=== PATIENT | male | born 1960 | race Caucasian/White ===

== ENCOUNTER 2016-10-23 06:38 | Inpatient (IN) | payer MEDICARE, MEDICAID ==
[2016-08-30 23:09] VITALS: BMI 32.8
[2016-10-23] MEDS ORDERED: REMIFENTANIL HCL 2,000 MCG VIAL IV ONE (06:58)
[2016-10-23] MEDS ORDERED: CEFAZOLIN 1 GM VIAL ONE (07:13)
[2016-10-23] MEDS: VANCOMYCIN 1,000 MG VIAL INSTILL ONE ×2 (07:23→09:01)
[2016-10-23] MEDS ORDERED: BUPIVACAINE 0.5% 30 ML VIAL ONE (07:42)
[2016-10-23] MEDS ORDERED: LIDOCAINE 1% 30 ML VIAL (PRESERVATIVE FREE) ONE (07:42)
[2016-10-23] MEDS ORDERED: TRIAMCINOLONE 40 MG/ML VIAL ONE (07:44)
[2016-10-23] MEDS ORDERED: ONDANSETRON HCL 4 MG/2 ML VIAL IV PRN (07:56)
[2016-10-23] MEDS ORDERED: HYDROmorphone 1 MG INJECTION IV PRN ×3 (07:56→11:18)
[2016-10-23] MEDS ORDERED: FENTANYL 100 MCG/2 ML VIAL IV PRN (07:56)
[2016-10-23] MEDS ORDERED: ONDANSETRON HCL 4 MG ODT TAB PO PRN (07:56)
[2016-10-23] MEDS ORDERED: LABETALOL 20 MG/4 ML SYRINGE IV PRN (07:56)
[2016-10-23] MEDS ORDERED: MEPERIDINE 25 MG/ML TUBEX IV PRN (07:56)
[2016-10-23] MEDS ORDERED: hydrALAZINE 20 MG/ML VIAL IV PRN (07:56)
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
[2016-10-23] MEDS ORDERED: GLYCOPYRROLATE 1 MG VIAL IM ONE (10:45)
[2016-10-23] MEDS ORDERED: SUCCINYLCHOLINE 20 MG/1 ML INJ 10 ML MDV IV ONE (10:45)
[2016-10-23] MEDS ORDERED: DEXAMETHASONE 4 MG/ML VIAL IV ONE (10:45)
[2016-10-23] MEDS ORDERED: FENTANYL 100 MCG/2 ML VIAL IV ONE (10:45)
[2016-10-23] MEDS ORDERED: PROPOFOL 200 MG/20 ML VIAL IV ONE (10:45)
[2016-10-23] MEDS ORDERED: NEOSTIGMINE 1 MG/1 ML (1:1000) INJ 10 ML MDV IM ONE (10:45)
[2016-10-23] MEDS ORDERED: ONDANSETRON HCL 4 MG/2 ML VIAL IV ONE (10:45)
[2016-10-23] MEDS ORDERED: LIDOCAINE 2% 10 ML (PRESERVATIVE FREE) VIAL INF ONE (10:45)
[2016-10-23] MEDS ORDERED: MIDAZOLAM 2 MG/2 ML VIAL IV ONE (10:45)
[2016-10-23] MEDS ORDERED: ROCURONIUM 50 MG/5 ML VIAL IV ONE (10:45)
[2016-10-23] MEDS ORDERED: DIPHENHYDRAMINE 50 MG/ML VIAL IV PRN (11:18)
[2016-10-23] MEDS ORDERED: Aluminum;Magnesium;Simethicone 30 ML UDC PO PRN (11:18)
[2016-10-23] MEDS ORDERED: SODIUM CHLORIDE 0.9% 3 ML FLUSH FLUSH PRN (11:18)
[2016-10-23] MEDS ORDERED: MAGNESIUM HYDROXIDE 30 ML BOTTLE PO PRN (11:18)
[2016-10-23] MEDS ORDERED: DIPHENHYDRAMINE 25 MG CAP PO PRN (11:18)
--- NOTE | 2016-10-23 11:19 | HIMOPRPT ---
POSTERIOR LUMBAR FUSION DATE OF PROCEDURE: 10/23/16 PREOPERATIVE DIAGNOSIS: -.Lumbar Degenerative disc disease L4-5. - Lumbar spinal stenosis L4-5 - Lumbar spondylolisthesis L4-5 - Lower extremity radiculopathy left - POSTOPERATIVE DIAGNOSIS: - Lumbar degenerative disc disease L4-5. - Lumbar spinal stenosis L4-5 - Lumbar spondylolisthesis L4-5 - Lower extremity radiculopathy left PROCEDURE PERFORMED: - Lumbar laminectomy with facetectomy and foraminotomy for decompression of the cauda equina and nerve root L4-5 . - Posterior lumbar interbody arthrodesis L4-5 . - Posterior spinal instrumentation L4-5 . - Application of posterior interbody mechanical devices for spinal arthrodesis L4-5 SURGEON: Phillip Barger MD. MANAGER HVAC: GLADYS Olson] ANESTHESIA: General endotracheal Anesthesia. IV FLUIDS: Crystalloids ANTIBIOTICS: 2 g given immediately preoperatively and re dosed accordingly thereafter ESTIMATED BLOOD LOSS: 100 ml. SPECIMENS: None. COMPLICATIONS: None. IMPLANTS: - Medtronic Solera pedicle screw system 6.5 x 55 - Interbody cage device size 12. BRIEF HISTORY: Patient is a 56 years old male with complaints of low back pain and left lower extremity radicular pain. He underwent L5-S1 laminectomy at almost 20 years ago. He had evidence of L4-5 spondylolisthesis with spinal stenosis. The patient over last several months has tried a variety of nonsurgical modalities, none of which has provided him with any significant or lasting relief of her symptoms. For this condition I recommended surgical decompression including today is listed procedure. I had a lengthy And detailed conversation With the patient and the family. Wediscussed the risks and benefits of both nonsurgical and surgical treatment for this condition. From a surgical standpoint, and the risks include but are not limited to bleeding, infection, dural tear, cerebrospinal fluid leak and fistula, nerve injury, persistent and worsening neurological symptoms in the lower extremities, persistent bladder and bowel dysfunction, spinal instability, progressive degenerative changes, recurrent stenosis, epidural hematoma, epidural scarring, the need for further surgery and even . All the questions were on surgery. The patient expressed understanding and still wished to proceed. She volunteered an informed consent for the surgery. DESCRIPTION OF THE PROCEDURE: The patient was seen and identified in the preop holding area. The surgical region was confirmed with the patient and initialed on the skin by the surgeon. The patient was brought back to the operating room. While lying supine in her hospital bed, she underwent induction of general endotracheal anesthesia without complications. A team "time out" was performed confirming the identity of the patient and the planned procedure. A Rivera catheter and sequential compression devices on the lower extremities were then placed. These were continued for the duration of the procedure. Baseline potentials were obtained. She was transferred to the OSI flat table in a prone position on Taye frame. All the bony prominences were adequately padded and the face and eyes were protected with a custom face pillow . The entire back and pelvic area was cleansed thoroughly with alcohol followed by Betadine. The surgical region was sealed off with plastic drapes. A C-arm was brought in for level localization. The surgical levels were identified and marked on the skin with the pen. 2 g of IV Ancef were given preoperatively within 30 min. of the surgical incision. We utilized the standard midline posterior approach to the lumbar spine. Incision was made in the skin. Bovie cautery was used for hemostasis and dissection down through the subcutaneous tissue And along the posterior elements of the lumbar spine. Exposure was continued out to the level of the facets, the facet capsules were initially preserved. A C-arm was then brought in to identify and confirm the surgical levels. At this moment to be proceeded with more complete exposure removing facet joint capsules at L4 and L5 . Exposure was continued out along the dorsal aspect of the transverse processes L4-L5 . Self-retaining retractors were placed. Next, we proceeded with posterior decompression with laminectomy for decompression of the cauda equina and nerve root. At L4-5 left side a laminectomy with removal of abnormal facets was performed. All of this laminectomy was done separately from the exposure required for a and interbody fusion due to the severe stenosis and necessity for full decompression of the spinal canal. All of the laminectomy were done in a piecemeal fashion using a combination of rongeur, curettes and high-speed bur. No dural tears were encountered at any time during than.procedure. We were able to get sufficient decompression along the length of the canal from L4-L5 . The facets Joints capsules at the level above L3-4 were preserved. Bipolar cautery and FloSeal were used for hemostasis. A ball-tipped sound was used to assess adequate decompression which was felt to be satisfactory. We then proceeded with posterior lumbar interbody arthrodesis at L4-5 . This was done from the left sided approach. Total cystectomy was done to allow for adequate exposure of the disc space. With the traversing and exiting nerve roots protected, an annulotomy was performed with a scalpel. A discectomy was then performed in a piecemeal fashion using a combination of rongeur and curettes. The disc space was irrigated on multiple occasions. We then sized for and used a size 12 tall interbody cage. This cage had a very tight fit in the interbody space and the cage was packed with locally harvested autograft additional autografts were also placed around the cage in the interbody space. Final positioning of the cage was checked with orthogonal views on C-arm and felt to be satisfactory. No abnormal changes on the neurophysiologic monitoring were encountered at any time during this portion of the procedure. Next we proceeded with application of posterior segmental instrumentation at L4- 5 . Pedicle screw starting points were identified With anatomic landmarks and with images on C-arm. The starting points were decorticated with rongeur and high-speed bur. Pedicle finder awls Were utilized To develop a channel through the pedicle at each of the levels on each side in similar fashion. Trajectory was checked periodically on C-arm. The channels were checked with the ball-tip sound, tapped and then filled with pedicle screws. 6.5 x 55 Size screws were used at all the levels. No abnormal changes or neural physiologic monitoring were noted at any time during placement of the pedicle screws were. At this point each of the pedicle screws was then stimulated for an neurophysiologic monitoring. All screws were within acceptable limits. We used a arjun to connect the pedicle screws. Orthogonal views were then out pain on C-arm and and overall alignment and fixation was felt to be satisfactory. We then proceeded for wound closure. The central canal was checked for a final time and any residual bone graft removed. Hemovac drain was then placed in the subfascial space. The deep fascia was reapproximated with #1 Vicryl sutures. Subcutaneous tissue was approximated with Vicryl sutures and nylon sutures were used for the skin. Steroid dressings were applied. Patient was rolled back onto the hospital bed. She was awakened and extubated without complication. Upon awakening, she was able to demonstrate gross motor function in upper and lower extremities. No sustained abnormal signal change were noted on neuro physiologic monitoring. Sponge, needle and instrument counts were correct x2 at the end of the procedure. [employer] Supervisor's of the implant company were present throughout the case to enhance patient safety. DISPOSITION: The patient would be admitted to the Orthopedic Service. Would be starting physical therapy this afternoon.
[2016-10-23] MEDS ORDERED: Pharmacy Discontinue All Previous Acetaminophen Orders SCH (12:00)
[2016-10-23] MEDS ORDERED: NALOXONE 0.4 MG/ML AMPULE IV SCH (12:00)
[2016-10-23] MEDS ORDERED: FENTANYL 100 MCG/2 ML VIAL ONE ×2 (12:09→12:32)
[2016-10-23] MEDS: FENTANYL 100 MCG/2 ML VIAL IV PRN ×3 (12:13→12:48)
[2016-10-23] MEDS ORDERED: NS 250 ML IV ONE (13:27)
[2016-10-23] MEDS: OXYCODONE HCL 5 MG TABLET PO PRN ×2 (14:46→22:19)
[2016-10-23] MEDS: Cefazolin 2gm/50 ml D5W 2 GM/50 ML RTU IV SCH ×2 (14:47→20:02)
[2016-10-23] MEDS: ACETAMINOPHEN 325 MG/TAB TABLET PO SCH ×3 (14:49→23:10)
[2016-10-23] MEDS: ONDANSETRON HCL 4 MG/2 ML VIAL IV SCH ×3 (14:53→23:10)
[2016-10-23] MEDS ORDERED: Vaccine Screening Complete SCH (15:00)
[2016-10-23] MEDS: CALCIUM CARBONATE + VITAMIN D 500 MG TAB PO SCH ×2 (16:01→18:25)
[2016-10-23] MEDS: VITAMINS, MULTIPLE CAP PO SCH (16:01)
--- NOTE | 2016-10-23 17:21 | SC.ANESPOS ---
Post-Anesthesia Note PACU Discharge Time: 13:15 - Vital Signs Blood Pressure: 130/71 Pulse: 109 Resp Rate: 18 O2 Sat: 93 Temp: 97.8 F - Comments Anesthesia Discharge Time Report Time 13:15
[2016-10-23] MEDS: PANTOPRAZOLE 40 MG TAB PO SCH (18:25)
[2016-10-23] MEDS: OXYCODONE (OxyCONTIN) 10 MG TAB PO PRN (18:26)
[2016-10-23] MEDS: HYDROmorphone 1 MG INJECTION IV PRN ×2 (18:26→23:11)
[2016-10-23] MEDS: SODIUM CHLORIDE 0.9% 3 ML FLUSH FLUSH SCH (19:22)
[2016-10-23] MEDS: DOCUSATE-SENNA CONCENTRATE TAB PO SCH (20:02)
--- NOTE | 2016-10-23 20:03 | PCM.DCS92 ---
- Final/Secondary Discharge Diagnosis (1) Radicular pain of both lower extremities Acute M54.10 - RADICULOPATHY, SITE UNSPECIFIED (2) Lumbar degenerative disc disease Acute M51.36 - OTHER INTERVERTEBRAL DISC DEGENERATION, LUMBAR REGION Discharge Disposition: Home Cognitive Discharge Status: Unimpaired Fuctional Discharge Status: Walker Assistance, Post-op Weakness Diet at Discharge: As Tolerated, Regular Call Office For: Worsening Symptoms, Wound is Draining Pus, Fever over 101 F, Fever over 100.5, Wound is Painful, Wound is Red, Weight Gain (see below), Pain Uncontrolled By Meds, Other (See Details) Discontinue use of:: Alcohol, All Illegal Substances, All Types of Tobacco - DC Summary Notes Hospital Course Note:: Discharge summary on patient named ROSALIA SAEED admitted to [facility] on 10/23/16 by Phillip Barger MD. Date of discharge is []. Afebrile. Hospital course and surgery uneventful. Continue pain management. No NSAIDs for 3 months post-op. No aspirin for 72 hours post-op. Do not remove dressing. OK to shower with dressing in place. Call office with any dressing concerns. Avoid felxion and rotation of the spine. No lifting greater than 5 pounds. Stable for discharge home. To follow-up in office in 2 weeks or earlier as needed. <Franco Recinos - Last Filed: 10/23/16 20:01> - Final/Secondary Discharge Diagnosis (1) Lumbar degenerative disc disease Acute M51.36 - OTHER INTERVERTEBRAL DISC DEGENERATION, LUMBAR REGION Present on Admission: Yes Discharge Home Medication List Diazepam 10 mg PO TID 08/23/16 [History Confirmed 10/23/16 Last Taken 10/22/16 20:00] Acetaminophen [Acetaminophen Extra Strength] 500 - 1,000 mg PO Q6-8H PRN [History Confirmed 10/23/16 Last Taken 10/22/16 06:00] Folic Acid/Multivit-Minerals [Men's Multivitamin Gummies] 200 mcg PO DAILY 09/19 [History Confirmed 10/23/16 Last Taken 10/21/16] Oxycodone HCl/Acetaminophen [Percocet 5-325 mg Tablet] 1 - 2 tab PO Q4H PRN 06/27 [History Confirmed 09/19/16 Last Taken 10/23/16 06:00] Docusate-Senna Concentrate [Senokot S or Jessica Colace] 2 each PO QHS #60 tab 09/27 [Rx Last Taken Unknown] Ergocalciferol (Vitamin D2) [Vitamin D2 (ergocalciferol)] 50,000 units PO We@ 0900 10/23/16 [History Confirmed 10/23/16 Last Taken 10/15/16] Oxycodone Immediate Release [Oxycodone Immediate Release (OxyIR)] 5 mg PO Q4H PRN #40 tab 10/23/16 [Rx Last Taken Unknown] Tramadol HCl [Ultram] 100 mg PO DAILY 10/23/16 [History Confirmed 10/23/16 Last Taken 10/23/16 06:00] - DC Summary Notes Hospital Course Note:: Discharge summary on patient named ROSALIA SAEED admitted to [facility] on 10/23/16 by Phillip Barger MD. Date of discharge is [10/26/2016] . <Bradley Werner - Last Filed: 10/26/16 08:01> Discharge Condition: Stable Physician Follow up/Referrals: Phillip Barger MD [Staff Physician] - Two Weeks New Prescriptions: Docusate-Senna Concentrate [Senokot S or Jessica Colace] 2 each PO QHS #60 tab Oxycodone Immediate Release [Oxycodone Immediate Release (OxyIR)] 5 mg PO Q4H PRN #40 tab PRN Reason: Pain Wound Care Surgical Site: Yes Site Description (if applicable): lumbar spine May Shower Starting:: upon discharge Dressing/Site Care (if applicable): Do not remove Ioban dressing. Call office with any dressing concerns. <Franco Recinos - Last Filed: 10/23/16 20:01> Medical Equipment (Order must still be written on paper): Walker Remove Transdermal Scopalamine patch if present: YES Medication Instructions: Take Stool Softener Continue Ice Packs/Ice Machine to Operative Area: Yes Activity as Tolerated: No (Avoid flexion/rotation of the spine. No lifting greater than 5 pounds) Weight Bearing: Full Current Dressing: Ioban Dressing Care: Keep Wound Clean & Dry, Shower with Tegaderm Dsg, No Tub Baths, Other Instructions Below (Do not remove Ioban dressing. Call office with any dressing concerns.) <Franco Recinos - Last Filed: 10/23/16 20:01> - Consults/Home Health Outpatient Consults: None <Bradley Werner - Last Filed: 10/26/16 08:01> - Physical Exam Vital Signs: Initial Vitals Temperature 97.7 F 10/23/16 07:24 Pulse Rate 88 10/23/16 07:24 Respiratory Rate 18 10/23/16 07:24 Blood Pressure 132/77 10/23/16 07:24 Pulse Oxygen Saturation 96 10/23/16 07:24 <Franco Recinos - Last Filed: 10/23/16 20:01> - Physical Exam Vital Signs: Initial Vitals Temperature 97.7 F 10/23/16 07:24 Pulse Rate 88 10/23/16 07:24 Respiratory Rate 18 10/23/16 07:24 Blood Pressure 132/77 10/23/16 07:24 Pulse Oxygen Saturation 96 10/23/16 07:24 <Bradley Werner - Last Filed: 10/26/16 08:01>
[2016-10-24] MEDS: ACETAMINOPHEN 325 MG/TAB TABLET PO SCH ×4 (05:27→22:42)
[2016-10-24] MEDS: Cefazolin 2gm/50 ml D5W 2 GM/50 ML RTU IV SCH (05:27)
[2016-10-24] MEDS: SODIUM CHLORIDE 0.9% 3 ML FLUSH FLUSH SCH ×2 (05:28→17:07)
[2016-10-24] MEDS: ONDANSETRON HCL 4 MG/2 ML VIAL IV SCH (05:28)
[2016-10-24] MEDS: PANTOPRAZOLE 40 MG TAB PO SCH ×2 (05:28→17:08)
[2016-10-24 07:04] LABS: MPV 8.1 fL (7.4-10.4)
--- NOTE | 2016-10-24 07:16 | PCM.ORTHBL ---
- Subjective Post Op Day: 1 Daily Assessment - Patient: Reports: No new complaints, Awake Alert Oriented x4 , Still having pain, Tolerating Regular Diet, Voiding without difficulty, Afebrile, Ambulating with Physical Therapist, Bowel Movement, Other (Denies chest pain). Denies: Difficulty Swallowing, Shortness of breath, Nausea, Vomiting - Objective / Physical Exam Vital Signs: Temperature: 97.7 F (10/24/16 04:45) HR: 97 (10/24/16 04:45)RR: 18 (10/24/16 04: 45) BP: 163/86 (10/24/16 04:45)Pulse Ox: 94 (10/24/16 04:45) General: Alert, Oriented x3, Cooperative, No acute distress, Well appearing Musculoskeletal / Extremities: 2 plus Dorsalis Pedis Pulse, Dressing Clean/Dry/ Intact. negative: Tenderness (no calf tenderness) Neurological: Positive Sensation First Dorsal Web Space, Sensation to light touch intact, Extensor Hallicus Longus Intact, Flexor Hallicus Longus Intact, Dorsiflexion Intact, Plantarflexion Intact Laboratory/Diagnostics Reviewed: 10/24/16 06:47 - Assessment and Plan (1) Radicular pain of both lower extremities Acute M54.10 - RADICULOPATHY, SITE UNSPECIFIED (2) Lumbar degenerative disc disease Acute M51.36 - OTHER INTERVERTEBRAL DISC DEGENERATION, LUMBAR REGION Plan: POD#1 s/p lumbar fusion L4-L5 Continue pain management PT/OT; Avoid flexion/rotation of the spine D/C planning, plan likely for home tomorrow.
[2016-10-24 07:18] LABS: BLOOD UREA NITROGEN 11 MG/DL (9-20); CALCIUM 10.1 MG/DL (8.4-10.2); CALCULATED OSMOLALITY 274 MOs/Kg (270-290); CHLORIDE 101 mEq/L (98-107); GLUCOSE 142 MG/DL (70-99); SODIUM LEVEL 142 mEq/L (137-146)
[2016-10-24] MEDS ORDERED: FLU VACCINE (Afluria) 0.5 ML DOSE IM ONE (08:00)
[2016-10-24] MEDS: OXYCODONE HCL 5 MG TABLET PO PRN ×4 (08:57→22:41)
[2016-10-24] MEDS ORDERED: MULTIVIT MINERALS PO SCH (09:00)
[2016-10-24] MEDS ORDERED: [UNRECOGNIZED DRUG - OTHER] PO SCH (09:00)
[2016-10-24] MEDS ORDERED: FOLIC ACID PO SCH (09:00)
[2016-10-24] MEDS: VITAMINS, MULTIPLE CAP PO SCH (11:04)
[2016-10-24] MEDS: HYDROmorphone 1 MG INJECTION IV PRN ×4 (11:05→20:30)
[2016-10-24] MEDS: CALCIUM CARBONATE + VITAMIN D 500 MG TAB PO SCH ×2 (11:05→17:08)
[2016-10-24] MEDS ORDERED: ONDANSETRON HCL 4 MG/2 ML VIAL IV PRN (12:00)
[2016-10-24] MEDS: OXYCODONE (OxyCONTIN) 10 MG TAB PO PRN (12:48)
[2016-10-24] MEDS: DOCUSATE-SENNA CONCENTRATE TAB PO SCH (21:13)
[2016-10-25] MEDS: OXYCODONE HCL 5 MG TABLET PO PRN ×4 (04:02→18:42)
[2016-10-25] MEDS: ACETAMINOPHEN 325 MG/TAB TABLET PO SCH ×4 (05:55→22:51)
[2016-10-25] MEDS: HYDROmorphone 1 MG INJECTION IV PRN ×4 (05:56→21:00)
[2016-10-25] MEDS: PANTOPRAZOLE 40 MG TAB PO SCH ×2 (05:56→17:49)
[2016-10-25] MEDS: SODIUM CHLORIDE 0.9% 3 ML FLUSH FLUSH SCH ×2 (05:58→17:49)
[2016-10-25 07:45] LABS: MPV 8.5 fL (7.4-10.4)
[2016-10-25 07:50] LABS: BLOOD UREA NITROGEN 12 MG/DL (9-20); CALCIUM 9.5 MG/DL (8.4-10.2); CALCULATED OSMOLALITY 276 MOs/Kg (270-290); CHLORIDE 100 mEq/L (98-107); GLUCOSE 111 MG/DL (70-99); SODIUM LEVEL 143 mEq/L (137-146)
--- NOTE | 2016-10-25 08:32 | PCM.ORTHBL ---
- Subjective Hospital Day #: 3 Post Op Day: 2 Daily Assessment - Patient: Reports: Awake Alert Oriented x4, Still having pain , Tolerating Regular Diet, Voiding without difficulty, Afebrile, Ambulating in Room, Ambulating with Physical Therapist - Objective / Physical Exam Vital Signs: Temperature: 98.3 F (10/25/16 05:12) HR: 91 (10/25/16 05:12)RR: 20 (10/25/16 05: 12) BP: 163/89 (10/25/16 05:12)Pulse Ox: 97 (10/25/16 05:12) General: Alert, Oriented x3, Cooperative, No acute distress Musculoskeletal / Extremities: 2 plus Dorsalis Pedis Pulse, Dressing Clean/Dry/ Intact, Tenderness Neurological: Positive Sensation First Dorsal Web Space, Sensation to light touch intact, Extensor Hallicus Longus Intact, Flexor Hallicus Longus Intact, Dorsiflexion Intact, Plantarflexion Intact Spine: limited range of motion, paraspinous muscle tender Skin: Warm,Dry and Intact Laboratory Results - last 24 hr 10/25/16 10/25/16 06:39 06:39 WBC 17.2 H RBC 4.57 L Hgb 13.8 L Hct 39.7 L MCV 87 MCH 30.1 MCHC 34.7 RDW 14.3 Plt Count 327 MPV 8.5 Sodium 143 Potassium 4.0 Chloride 100 Carbon Dioxide 31 Anion Gap 16 BUN 12 Creatinine 0.90 Estimated GFR (MDRD) > 60 Glucose 111 H Calculated Osmolality 276 Calcium 9.5 - Assessment and Plan (1) Lumbar degenerative disc disease Acute M51.36 - OTHER INTERVERTEBRAL DISC DEGENERATION, LUMBAR REGION Present on Admission: Yes Comment/Plan: POD #2 s/p L4-5 fusion. Patient continuing to have subjective pain not well controlled. He is on chronic home opioids which is likely adding to his poor pain control post op. Will d/w Dr. Barger adding oral meds. Continue PT/OT and will plan for d/c home tomorrow morning.
[2016-10-25] MEDS: DIAZEPAM 5 MG TAB PO PRN ×2 (08:46→22:51)
[2016-10-25] MEDS: VITAMINS, MULTIPLE CAP PO SCH (11:58)
[2016-10-25] MEDS: CALCIUM CARBONATE + VITAMIN D 500 MG TAB PO SCH ×2 (11:58→17:48)
[2016-10-25] MEDS: DOCUSATE-SENNA CONCENTRATE TAB PO SCH (20:59)
[2016-10-25] MEDS: OXYCODONE (OxyCONTIN) 10 MG TAB PO PRN (22:51)
[2016-10-26] MEDS: HYDROmorphone 1 MG INJECTION IV PRN ×2 (04:27→08:36)
[2016-10-26] MEDS: SODIUM CHLORIDE 0.9% 3 ML FLUSH FLUSH SCH (04:27)
[2016-10-26] MEDS: PANTOPRAZOLE 40 MG TAB PO SCH (05:55)
[2016-10-26] MEDS: OXYCODONE HCL 5 MG TABLET PO PRN ×2 (05:55→10:15)
[2016-10-26] MEDS: ACETAMINOPHEN 325 MG/TAB TABLET PO SCH (05:56)
[2016-10-26 06:32] VITALS: BP 161/97; PULSE 87; TEMP 98.4
--- NOTE | 2016-10-26 08:03 | PCM.ORTHBL ---
- Subjective Hospital Day #: 4 Post Op Day: 3 Daily Assessment - Patient: Reports: Awake Alert Oriented x4, Feels better, Pain is less, Tolerating Regular Diet, Voiding without difficulty, Afebrile, Ambulating without assistance - Objective / Physical Exam Vital Signs: Temperature: 98.4 F (10/26/16 06:00) HR: 87 (10/26/16 06:00)RR: 18 (10/26/16 06: 00) BP: 161/97 (10/26/16 06:00)Pulse Ox: 99 (10/26/16 06:00) General: Alert, Oriented x3, Cooperative, No acute distress Musculoskeletal / Extremities: 2 plus Dorsalis Pedis Pulse, Dressing Clean/Dry/ Intact, Tenderness Neurological: Positive Sensation First Dorsal Web Space, Sensation to light touch intact, Extensor Hallicus Longus Intact, Flexor Hallicus Longus Intact, Dorsiflexion Intact, Plantarflexion Intact Spine: paraspinous muscle tender - Assessment and Plan (1) Lumbar degenerative disc disease Acute M51.36 - OTHER INTERVERTEBRAL DISC DEGENERATION, LUMBAR REGION Present on Admission: Yes Comment/Plan: POD #3 s/p L4-5 fusion doing better. Plan for d/c home today. Rx on chart and follow up with Dr. Barger within 10-12 days.
[2016-10-29] MEDS ORDERED: ERGOCALCIFEROL (VITAMIN D2) 50000 UNITS CAP PO SCH (09:00)
== END 2016-10-26 10:46 | disposition home or self-care (01) | DRG 460 ==
LOC: SDC 06:38 → MPS3 13:19
PROVIDERS: ADMIT Orthopaedic Surgery; ATTEND Orthopaedic Surgery
PROC: 0SG00A1 (ICD-10-PCS; 2016-10-23)
PROC: 01NB0ZZ Release Lumbar Nerve, Open Approach (ICD-10-PCS; principal; 2016-10-23 08:00)
DX: M51.16 Intervertebral disc disorders with radiculopathy, lumbar region (principal); I12.9 Hypertensive chronic kidney disease with stage 1 through stage 4 chronic kidney disease, or unspecified chronic kidney disease; Z88.8 Allergy status to other drugs, medicaments and biological substances; J45.909 Unspecified asthma, uncomplicated; N18.9 Chronic kidney disease, unspecified; E78.00 Pure hypercholesterolemia, unspecified; J44.9 Chronic obstructive pulmonary disease, unspecified; M19.90 Unspecified osteoarthritis, unspecified site; N52.9 Male erectile dysfunction, unspecified; N40.1 Benign prostatic hyperplasia with lower urinary tract symptoms; Z86.73 Personal history of transient ischemic attack (TIA), and cerebral infarction without residual deficits; I51.9 Heart disease, unspecified; Z87.891 Personal history of nicotine dependence; Z79.899 Other long term (current) drug therapy; E55.9 Vitamin D deficiency, unspecified; M43.16 Spondylolisthesis, lumbar region; I25.2 Old myocardial infarction; Z23 Encounter for immunization
CPT/HCPCS: 80048; 85027; 86850; 86900; 86901; 90471; 90656; 95870; 95937; 95938; 97161; 97165; G0237; J0330; J0690; J1100; J1170; J2001; J2250; J2405; J2710; J3010; J3301; J3370; J3490